=== PATIENT | male | born 1965 | race Caucasian/White ===

== ENCOUNTER → 2021-02-20 | Outpatient (CLI) | payer OTHER ==
[~2021-02-20] MED LIST: OMNIPAQUE 350 MG/ML, 75ML BOTTLE ONE
== END | disposition home or self-care (01) ==
LOC: CFH 08:38
PROVIDERS: ATTEND Nurse Practitioner Primary Care
DX: J84.10 Pulmonary fibrosis, unspecified (principal); K76.89 Other specified diseases of liver; R05 Cough; R06.89 Other abnormalities of breathing; R16.1 Splenomegaly, not elsewhere classified; Z95.0 Presence of cardiac pacemaker; Z77.090 Contact with and (suspected) exposure to asbestos
CPT/HCPCS: 71260; Q9967